=== PATIENT | male | born 1950 | race African-American/Black ===

== ENCOUNTER → 2016-08-27 | Day surgery (SDC) | payer MEDICARE, OTHER ==
--- NOTE | 2016-08-24 16:58 | Pre-op HX & Phy Repo 2 SIG ---
DATE OF ADMISSION: 08/27/2016 DATE OF SURGERY: 08/27/2016. PREOPERATIVE DIAGNOSES: 1. Retinal detachment, left eye. 2. Proptosis, left eye. BRIEF NOTE: This is the first [facility] admission for the patient. He is a very nice 65-year-old gentleman, who has noted gradual diminishment of vision in the left eye for probably the past year. During this time, he has noted a gradual protrusion of the left eye, occasionally pass the lids, which causes him discomfort and requires the reposition of the eye. On examination, he was found to have a total shallow retinal detachment with what appeared to be a central vitreous hemorrhage. PAST MEDICAL HISTORY: Remarkable for arthritis, cancer, diabetes, heart disease, hypertension, and thyroid disease. He is a nonsmoker. He does some drinking. He has an allergy to Dilaudid. PHYSICAL EXAMINATION: Best vision at the time of admission was 20/40 in the right eye and counting fingers in the left with pressures of 15 and 12. The anterior segment on the right appeared quiet. The left showed significant exophthalmos. Range of motion was good. Slit-lamp examination revealed incipient cataracts in both eyes. There was poor pupillary dilation on the left. Funduscopic examination of the right eye appeared benign with no evidence of diabetic disease. The left eye showed a hazy view. There was a significant retinal detachment seen on ultrasound with central vitreous debri. General physical examination will be done by Dr. Muller. ASSESSMENT: 1. Retinal detachment, left eye. 2. Proptosis, left eye. PLAN: The plan is to perform a pars plana vitrectomy with possible scleral buckling, silicone oil injection, endolaser or possible gas injection depending on the nature of the detachment, and the holes found. There will also be a possible temporary tarsorrhaphy done to limit the possibility of painful proptosis during the recovery period. This can be subsequently easily taken down. The risks and benefits of surgery including potential for infection, hemorrhage, cataract formation, recurrent detachment, the possibility of loss of the eye were discussed. The patient understands and consents to the surgery, which will be performed on Saturday morning. Hernandez You M.D. DR: SANIA JOB#: [id number] CC:
[2016-08-27] VITALS (10 sets, daily range): BP systolic 122–139; BP diastolic 67–84
[~2016-08-27] VITALS: Ht 182.9 cm; Wt 129.3 kg
[~2016-08-27] MED LIST: ASPIRIN81 MG ORAL; ATORVASTATIN CA80 MG ORAL; BSS 15ml BTL ONE; BSS 500ml btl ONE; Bupivacaine 0.75% 30ml vial INJ ONE; COREG3.125 MG ORAL; Cyclopentolate 1% Opth Sol ONE; Dexamethasone 4mg/ml vial ONE; EPINEPHrine 1mg/1ml Amp ONE; FUROSEMIDE40 MG ORAL; Flurbiprofen 0.03% Opth Sol 2.5ml ONE; Gatifloxacin Opth Solution 0.5% ONE; Hydromorphone 0.5mg/0.5ml inj IVP PRN; KLOR-CON M2020 MEQ ORAL; Kenalog-10 5ml Inj ONE; Kenalog-40 1ml Vial ONE; Ketorolac 30mg Inj IV PRN; LOSARTAN POTASS25 MG ORAL; LOSARTAN-HCTZ1 EAC1 ORAL; Lidocaine 1% MPF 10mg/ml 5ml ONE; Lidocaine 2% MPF 5ml Vial INJ ONE; METFORMIN HCL850 M1 ORAL; Maxitrol Opth Oint 3.5gm ONE; NS Irrig 1000ml ONE; Norco 5mg/325mg tab ORAL PRN; Phenylephrine 2.5% Op Soln ONE; Povidone-Iodine 5% opth solution ONE; Pred Forte 1% Opth Susp 1ml LEFT EYE SCH; Propofol 10mg/ml 20ml IV ONE; SPIRONOLACTONE25 MG ORAL; Sodium Hyaluronate 10 mg/ml 0.85ml ONE; Sterile Water Irrig 1000ml IRRIG ONE; Tetracaine 0.5% Opth Soln ONE; XARELTO10 MG ORAL; fentaNYL 100 mcg/2 mL IV PRN
[2016-08-27] MEDS: Gatifloxacin Opth Solution 0.5% LEFT EYE SCH ×3 (06:10→06:31)
[2016-08-27] MEDS: Phenylephrine 2.5% Op Soln LEFT EYE SCH ×3 (06:18→06:39)
[2016-08-27] MEDS: Cyclopentolate 1% Opth Sol LEFT EYE SCH ×3 (06:19→06:40)
[2016-08-27] MEDS: Flurbiprofen 0.03% Opth Sol 2.5ml LEFT EYE SCH ×3 (06:20→06:40)
--- NOTE | 2016-08-27 06:23 | Pre-Procedure Note/Attestation ---
Pre-Procedure Note/Attestation Complete Prior to Procedure Planned Procedure: left Procedure Narrative: PPV, possible scleral buckle, membrane peel, endolaser, gas fluid exchange, possible silicone oil, possible temporary lateral tarsorrhaphy L eye Indications for Procedure Pre-Operative Diagnosis: Total retinal detachment, proptosis L eye Attestation I attest that I discussed the nature of the procedure; its benefits; risks and complications; and alternatives (and the risks and benefits of such alternatives ), prior to the procedure, with the patient (or the patient's legal guest experience representative). I attest that, if there was a reasonable possibility of needing a blood transfusion, the patient (or the patient's legal guest experience representative) was given the [place] [employer] standardized written summary, pursuant to the Pasha Ohlman Blood Safety Act ([place] Health and Safety Code # 1645, as amended). I attest that I re-evaluated the patient just prior to the surgery and that there has been no change in the patient's H&P, except as documented below: JENNA RIVERA Aug 27, 2016 06:23
--- NOTE | 2016-08-27 08:16 | Anethesia Preoperative Eval ---
Anesthesia Pre-op PMH/ROS General Date of Evaluation: Aug 27, 2016 Time of Evaluation: 07:10 Anesthesiologist: Ewa ASA Score: ASA 4 Mallampati Score Class I : Soft palate, uvula, fauces, pillars visible Class II: Soft palate, uvula, fauces visible Class III: Soft palate, base of uvula visible Class IV: Only hard plate visible Mallampati Classification: Class IV Surgeon: Kenyatta Diagnosis: Retinal Detatchment Surgical Procedure: Vitrectomy Family History: no anesthesia problems Allergies: Coded Allergies: HYDROMORPHONE (Verified Allergy, Unknown, 08/24/16) Medications: see eMAR Past Medical History Cardiovascular: Reports: CAD, HTN, arrhythmia, other - Cardiac Resynchronization therapywith improvment to stage 2 Heart fail Ssymptoms Pulmonary: Reports: COPD Gastrointestinal/Genitourinary: Reports: GERD Neurologic/Psychiatric: Denies: CVA, TIA, dementia, depression/anxiety, other Endocrine: Reports: DM HEENT: Reports: other - retinal detatchement Hematology/Immune: Denies: DVT, anemia, bleeding disorder, other Musculoskeletal/Integumentary: Reports: DJD Anesthesia Pre-op Phys. Exam Physician Exam Last Vital Signs Date Time Temp Pulse Resp B/P Pulse Ox O2 Delivery O2 Flow Rate FiO2 08/27/16 06:24 98.3 75 18 137/70 95 Room Air Constitutional: NAD Neurologic: CN 2-12 intact Cardiovascular: RRR Gastrointestinal: S/NT/ND Airway Exam Mallampati Score: Class IV ROLANDO DE LA GARZA M.D. Aug 27, 2016 08:16
--- NOTE | 2016-08-27 08:44 | Immediate Post-Op Evaluation ---
Immediate Post-Op Evalulation Immediate Post-Op Evalulation Procedure: Vitrectomy Date of Evaluation: Aug 27, 2016 Time of Evaluation: 10:00 IV Fluids: 400 Blood Products: 0 Estimated Blood Loss: 0 Urinary Output: 0 Blood Pressure Systolic: 140 Blood Pressure Diastolic: 80 Pulse Rate: 80 Respiratory Rate: 20 O2 Sat by Pulse Oximetry: 98 Temperature (Fahrenheit): 98 Pain Score (1-10): 2 Nausea: No Vomiting: No Complications na Patient Status: awake Given Within 1 Hr of Incision: ROLANDO Sanders M.D. Aug 27, 2016 08:44
--- NOTE | 2016-08-27 08:45 | 48 Hour Post Anesthesia Eval ---
Post Anesthesia Evaluation Procedure: Vitrectomy Date of Evaluation: Aug 27, 2016 Time of Evaluation: 11:00 Blood Pressure Systolic: 140 0: 80 Pulse Rate: 80 Respiratory Rate: 20 Temperature (Fahrenheit): 98 O2 Sat by Pulse Oximetry: 98 Airway: patent Nausea: No Vomiting: No Pain Intensity: 2 Hydration Status: adequate Cardiopulmonary Status: na Mental Status/LOC: patient returned to baseline Follow-up Care/Observations: na Post-Anesthesia Complications: na Follow-up care needed: N/A ROLANDO DE LA GARZA M.D. Aug 27, 2016 08:45
--- NOTE | 2016-08-27 10:27 | Brief Operative Note ---
Immediate Post Operative Note Operative Note Chief Complaint: Dark vision Pre-op Diagnosis: Total retinal detachment, proptosis L eye Procedure: PPV, scleral buckle (287, 240, 70), endocrine, cryo, endolaser (610 spots) Gas- fluid (C3F8 16%), temporary tarsorrhaphy (70 sleeve bolsters) L eye Post-op Diagnosis: same as pre-op Surgeon: miah Anesthesiologist: Ewa Anesthesia: MAC Complications: none Condition: stable Estimated Blood Loss: none Drains: none Implant(s) used?: Yes - 240 band 287 tire 70 JENNA Squires Aug 27, 2016 10:27
--- NOTE | 2016-08-28 22:58 | Operative Note - Dictated ---
DATE OF OPERATION: 08/27/2016 PREOPERATIVE DIAGNOSIS: Retinal detachment with vitreous opacification of the left eye. POSTOPERATIVE DIAGNOSIS: Retinal detachment with vitreous opacification of the left eye. PROCEDURES PERFORMED: 1. Pars plana vitrectomy. 2. Scleral buckle. 3. Endolaser. 4. Gas fluid exchange. 5. Temporary tarsorrhaphy left eye. SURGEON: Hernandez You M.D. MARZIPAN MAKER: None. ANESTHESIA: Local with sedation. ANESTHESIOLOGIST: Guilherme Mcneil M.D. JUSTIFICATION FOR SURGERY: This is a 65-year-old gentleman noted a decrease in vision in the right eye over approximately a year. He also complained of some degree of proptosis of the right eye, which occasionally necessitated him repositioning the globe after it became proptosis outside of the lids. BRIEF NOTE: The patient was brought to the operating room and placed on the operating room table in supine position. After a time-out was performed and agreed upon by the staff and additional monitoring secured by Dr. Mcneil, retrobulbar and Van Lint blocks were given in the standard way. When the blocks taken effect, he was prepped and draped in the normal manner. The lid speculum was inserted to the left eye. A 360-degree peritomy was then cut with relaxation incisions at the 3 and 9 o'clock positions. The muscles were isolated and turned on white and black ties. A 23-gauge cannula system was then used to place cannulas in all except the inferonasal quadrant. Infusion was secured inferotemporally. Vitrectomy was then begun posterior to the lens taking care to avoid contact. The lens was noted to be somewhat cataract this with nuclear sclerosis and cortical spoking. After the initial vitrectomy was begun, the cornea was noted to be somewhat cloudy and the epithelium was removed with a #64 [place] blade. With the view somewhat improved the vitrectomy was continued performing a core vitrectomy and a peripheral vitrectomy leaving a small vitreous scar. The retina was noted to be significantly detached with only a small pie shaped area superiorly from 11 to 2 remaining attached. Examination of the periphery showed a horseshoe tear anterior to the equator at the 7 o'clock position. This was marked with Endo cautery. Additional areas of pigmentation were noted peripherally, but no puja tears. Because of the inferior location of the tear and the extent of the detachment it was felt that a scleral buckle would be needed. The instruments were removed from the eye and mattress sutures of 5-0 nylon were placed in each quadrant after marking of the retinal break with the indirect ophthalmoscope. The sutures were placed 6 mm apart in the two inferior quadrants and 4 mm apart up above. With the indirect ophthalmoscope, the break was localized and a gentle cryopexy was used to treat the area. Additional cryopexy was placed at the areas of suspicious pigmentation in the inferior half of the retina, but no definite break were seen. No break were noted in the upper retina. A scleral buckle was then chosen consisting of a 240 band and 287 tire to be held in position with a 70 sleeve. The band was encircled about the eye beneath the muscles and the mattress sutures and secured with a 70 sleeve in the supranasal quadrant. A segment of 287 tire was then cut and chosen to be placed under the break inferonasally extending underneath the inferior rectus muscle to mid quadrant inferotemporally. The tire was sewn into place and the knots were rotated posteriorly. The band was sewn with the remaining mattress sutures and these knots were rotated posteriorly. A mild buckling effect above was noted with the ends of the banding for further adjustment. Because of the bullous nature of the detachment at 270 degrees, it was elected to perform a posterior retinotomy and achieve endo drainage. The Endo cautery was used to perform a retinotomy just nasal and slightly superior to the optic nerve and detached retina. An air-fluid exchange was gently performed and the retina was noted to flatten nicely with drainage through the retinotomy. Once the retina was flat, additional laser using the endolaser probe was placed around the previously noted retinal break and also 2 suspicious areas of pigmentation on the crest of the buckle down below. The posterior retinotomy was also surrounded with 3 rows of laser. A total of 610 lesions were applied. With the retina now flat, a gas exchange was performed using a 16% mixture of C3FA to form a roughly 85% fill. At this juncture, the remaining ends of the band were trimmed leaving only a mild buckling effect. The sclerotomies were individually closed with 8-0 Vicryl suture. Conjunctiva and Tenon's capsule were then pulled up and secured with 6-0 plain catgut. Subconjunctival Decadron and gentamicin were then injected inferiorly and Maxitrol and atropine ointments were instilled. Because of the tendency for further proptosis of the globe, it was elected to place a temporary tarsorrhaphy temporally. Two small segments of the remaining 70 sleeve were chosen and using 6-0 Prolene, double-arm suture was passed through the tubular bolster and inserted inferiorly from the skin site through the tarsal line and outward through the skin site up above. The suture was passed through the remaining bolster and secured with 4 knots, which were then placed inside of the bolster itself. This resulted in a roughly 25% to 30% tarsorrhaphy down below and also allowed visualization of the cornea and the anterior segment. Topical atropine, antibiotic, and prednisolone drops were instilled followed by Maxitrol ointment. The eye was patched and shielded and the patient was taken to recovery in excellent condition to be placed in a face-down position overnight. Hernandez You M.D. DR: CURT JOB#: [id number] CC: Hernandez You M.D.; Fax#: [phone]
== END | disposition home or self-care (01) ==
LOC: SUR 05:41
DX: H33.002 Unspecified retinal detachment with retinal break, left eye (principal); H43.392 Other vitreous opacities, left eye; H05.20 Unspecified exophthalmos; I48.92 Unspecified atrial flutter; Z79.01 Long term (current) use of anticoagulants; I47.2 Ventricular tachycardia; M19.90 Unspecified osteoarthritis, unspecified site; E11.9 Type 2 diabetes mellitus without complications; Z79.84 Long term (current) use of oral hypoglycemic drugs; I25.10 Atherosclerotic heart disease of native coronary artery without angina pectoris; I10 Essential (primary) hypertension; E07.9 Disorder of thyroid, unspecified; I25.5 Ischemic cardiomyopathy; I50.9 Heart failure, unspecified; E66.9 Obesity, unspecified; K21.9 Gastro-esophageal reflux disease without esophagitis; J44.9 Chronic obstructive pulmonary disease, unspecified; G47.30 Sleep apnea, unspecified; E78.5 Hyperlipidemia, unspecified; C91.10 Chronic lymphocytic leukemia of B-cell type not having achieved remission; Z95.810 Presence of automatic (implantable) cardiac defibrillator; Z88.5 Allergy status to narcotic agent
CPT/HCPCS: 67108; 67875; 82962; J0171; J1100; J1170; J2250; J2704; J3301; J3470; J3490; 94003; 94150